=== PATIENT | male | born 1955 | race Hispanic/Latino ===

== ENCOUNTER 2021-09-24 20:30 | Observation (INO) | payer MEDICARE, OTHER ==
[~2021-09-24] VITALS: Ht 165.1 cm; Wt 67.6 kg
[2021-09-24] MEDS ORDERED: KETOROLAC TROMETHAMINE 30 MG/ML VIAL IV STA (20:39)
[2021-09-24 20:54] LABS: BASOPHILS % 0.6 % (0.0-1.0); EOSINOPHILS # (AUTO) 0.3 (0.0-0.4); EOSINOPHILS % 4.7 % (0.0-6.0); HEMATOCRIT 35.3 % (38.2-49.6); HEMOGLOBIN 11.6 g/dL (14.0-18.0); LYMPHOCYTES # (AUTO) 1.5 (1.0-3.2); LYMPHOCYTES % 27.5 % (18.0-39.1); MEAN CORPUSCULAR HEMOGLOBIN 29.8 pg (28-32); MEAN CORPUSCULAR HGB CONC 32.9 g/dL (31-35); MEAN CORPUSCULAR VOLUME 90.7 fL (81-99); MONOCYTES # (AUTO) 0.6 (0.2-0.8); MONOCYTES % 10.9 % (4.4-11.3); NEUTROPHILS % 55.9 % (38.7-80.0); PLATELET COUNT 186 x10e3/uL (140-360); RED BLOOD COUNT 3.89 x10e6/uL (4.3-5.7); RED CELL DISTRIBUTION WIDTH 12.9 % (11.7-14.4)
[2021-09-24 21:18] LABS: ALBUMIN 4.2 g/dL (3.5-5.0); ALBUMIN/GLOBULIN RATIO 1.3 (0.8-2.0); ANION GAP 20.5 mmol/L (8-16); CALCIUM 9.2 mg/dL (8.4-10.2); CREATININE, SERUM 0.79 mg/dL (0.72-1.25); POTASSIUM 3.5 mmol/L (3.5-5.1)
[2021-09-24 21:24] LABS: CREATINE KINASE MB 2.3 ng/mL (0-5.0)
[2021-09-24] MEDS ORDERED: SODIUM CHLORIDE 0.9% 50ML 50 ML ONE (21:38)
[2021-09-24] MEDS ORDERED: IOPAMIDOL 370 MG/ML 200 ML INFUS..BTL INJ ONE (21:39)
[2021-09-24] MEDS ORDERED: ONDANSETRON HCL INJ 2MG/ML 2ML 2 MG/ML VIAL IV PRN (22:15)
[2021-09-24] MEDS ORDERED: Morphine 2mg Syringe 2 MG/ML SYR IV PRN (22:15)
[2021-09-25 01:35] LABS: CREATINE KINASE MB 1.8 ng/mL (0-5.0)
[2021-09-25 06:05] LABS: CREATINE KINASE MB 1.6 ng/mL (0-5.0)
[2021-09-25 06:22] LABS: CHOLESTEROL 318 MD/DL (0-199); HDL CHOLESTEROL 29 MG/DL (40-60); TRIGLYCERIDES 1321 MG/DL (0-149)
[2021-09-25] MEDS ORDERED: ASPIRIN 81 MG ENTERIC COATED PO SCH (09:00)
[2021-09-25] MEDS ORDERED: POTASSIUM CHLORIDE 20 MEQ TAB CR PO STA (10:42)
[2021-09-25] MEDS ORDERED: FENOFIBRATE 145 MG TAB PO ONE (10:45)
[2021-09-25] MEDS ORDERED: BISACODYL 10 MG SUPP PR ONE (10:45)
[2021-09-25] MEDS ORDERED: DOCUSATE SODIUM LIQD 100 MG/10 ML UDC NG SCH (10:45)
[2021-09-25] MEDS ORDERED: POLYETHYLENE GLYCOL 3350 17 GM PACK PO ONE (10:45)
[2021-09-25] MEDS ORDERED: FENOFIBRATE145 MG PO (11:04)
[2021-09-25] MEDS ORDERED: ASPIRIN EC81 MG PO (11:04)
[2021-09-25] MEDS ORDERED: COLACE100 MG/10 NG (11:04)
[2021-09-25 11:30] LABS: CREATINE KINASE MB 1.3 ng/mL (0-5.0)
[2021-09-25] MEDS ORDERED: DOCUSATE SODIUM 100 MG CAP PO SCH (11:30)
[2021-09-25 14:48] VITALS: BP 136/65
[2021-09-26] MEDS ORDERED: FENOFIBRATE 145 MG TAB PO SCH (09:00)
== END 2021-09-25 14:51 | disposition home or self-care (01) ==
LOC: ER 20:35 → ERHOLD 22:08
PROVIDERS: ADMIT Internal Medicine; ATTEND Internal Medicine
DX: R07.9 Chest pain, unspecified (principal); R06.00 Dyspnea, unspecified; R11.0 Nausea; E78.1 Pure hyperglyceridemia; E78.5 Hyperlipidemia, unspecified; Z91.14 Patient's other noncompliance with medication regimen; Z85.46 Personal history of malignant neoplasm of prostate; E87.6 Hypokalemia; R73.9 Hyperglycemia, unspecified; I45.10 Unspecified right bundle-branch block; Z20.822 Contact with and (suspected) exposure to COVID-19
CPT/HCPCS: 36415; 71045; 71260; 80053; 80061; 82550 ×2; 82553 ×2; 84484 ×2; 85025; 85379; 93005 ×2; 93306; 94799; 99284; G0378 ×2; J1885; Q9967; U0002

== ENCOUNTER 2022-03-30 20:19 | Emergency (ER) | payer MEDICARE ==
[~2022-03-30] VITALS: Ht 165.1 cm; Wt 67.6 kg
[~2022-03-30 20:19] MED LIST: ASPIRIN EC81 MG PO; COLACE100 MG/10 NG; FENOFIBRATE145 MG PO
[2022-03-30] MEDS ORDERED: ACETAMINOPHEN 325 MG TAB PO STA (20:55)
[2022-03-30] MEDS ORDERED: ACETAMINOPHEN 1000 MG/100 ML 100 ML IV ONE (21:10)
[2022-03-30 21:19] LABS: BASOPHILS % 0.2 % (0.0-1.0); EOSINOPHILS # (AUTO) 0.1 (0.0-0.4); EOSINOPHILS % 0.7 % (0.0-6.0); HEMATOCRIT 27.9 % (38.2-49.6); HEMOGLOBIN 8.7 g/dL (14.0-18.0); LYMPHOCYTES # (AUTO) 1.1 (1.0-3.2); LYMPHOCYTES % 8.7 % (18.0-39.1); MEAN CORPUSCULAR HEMOGLOBIN 27.2 pg (28-32); MEAN CORPUSCULAR HGB CONC 31.2 g/dL (31-35); MEAN CORPUSCULAR VOLUME 87.2 fL (81-99); MONOCYTES # (AUTO) 1.1 (0.2-0.8); MONOCYTES % 8.5 % (4.4-11.3); NEUTROPHILS # (AUTO) 10.3 (2.1-6.9); NEUTROPHILS % 81.3 % (38.7-80.0); PLATELET COUNT 360 x10e3/uL (140-360); RED CELL DISTRIBUTION WIDTH 15.9 % (11.7-14.4)
[2022-03-30 21:34] LABS: ALBUMIN 2.6 g/dL (3.5-5.0); ALBUMIN/GLOBULIN RATIO 0.5 (0.8-2.0); ALKALINE PHOSPHATASE 151 IU/L (40-150); ANION GAP 19.7 mmol/L (8-16); BLOOD UREA NITROGEN 10 mg/dL (7-26); BUN/CREATININE RATIO 10 (6-25); CALCIUM 9.2 mg/dL (8.4-10.2); CARBON DIOXIDE 22 mmol/L (22-29); CHLORIDE 100 mmol/L (98-107); CREATININE, SERUM 1.01 mg/dL (0.72-1.25); GLUCOSE 297 mg/dL (74-118); SODIUM 136 mmol/L (136-145)
[2022-03-30 21:36] LABS: ALANINE AMINOTRANSFERASE < 6 IU/L (0-55); POTASSIUM 5.7 mmol/L (3.5-5.1)
[2022-03-30 21:42] LABS: CREATINE KINASE MB 0.8 ng/mL (0-5.0)
[2022-03-30] MEDS ORDERED: Morphine 4mg Syringe 4 MG/ML INJ IV STA (23:16)
[2022-03-30] MEDS ORDERED: ONDANSETRON HCL INJ 2MG/ML 2ML 2 MG/ML VIAL IV STA (23:16)
[2022-03-30] MEDS ORDERED: Morphine 4mg Syringe 4 MG/ML INJ ONE (23:30)
[2022-03-30] MEDS ORDERED: ONDANSETRON HCL INJ 2MG/ML 2ML 2 MG/ML VIAL ONE (23:30)
[2022-03-30] MEDS ORDERED: DEXTROSE 50% SYRINGE 50 ML IV STA (23:51)
[2022-03-30] MEDS ORDERED: INSULIN REGULAR, HUMAN 100 UNIT/1 ML IV STA (23:51)
[2022-03-30] MEDS ORDERED: ALBUTEROL SULF 0.083% NEB SOLN 3 ML NEB NEB STA (23:51)
[2022-03-31] MEDS ORDERED: FUROSEMIDE INJ 10 MG/ML 4 ML VIAL IV ONE
[2022-03-31 00:04] LABS: CLARITY,URINE SL CLOUDY (CLEAR); COLOR,URINE YELLOW (YELLOW); KETONES,URINE TRACE (NEGATIVE); LEUKOCYTE ESTERASE ,URINE NEGATIVE (NEGATIVE); NITRITE,URINE NEGATIVE (NEGATIVE); PROTEIN,URINE DIPSTICK NEGATIVE (NEGATIVE); URINE UROBILINOGEN 0.2 mg/dL (0.2 - 1)
[2022-03-31] MEDS ORDERED: SODIUM CHLORIDE 0.9% 1000ML 1,000 ML IV STA (00:08)
[2022-03-31 00:10] LABS: BACTERIA,URINE MANY /HPF; EPITHELIAL CELLS,URINE RARE /LPF
[2022-03-31] MEDS ORDERED: ALBUTEROL SULF 0.083% NEB SOLN 3 ML NEB ONE (00:32)
[2022-03-31] MEDS ORDERED: SODIUM CHLORIDE 0.9% 1000ML 1,000 ML ONE (00:43)
[2022-03-31] MEDS ORDERED: FUROSEMIDE INJ 10 MG/ML 4 ML VIAL ONE (00:43)
[2022-03-31] MEDS ORDERED: DEXTROSE 50% SYRINGE 50 ML IV ONE (00:43)
[2022-03-31] MEDS ORDERED: INSULIN REGULAR, HUMAN 100 UNIT/1 ML ONE (00:44)
[2022-03-31 02:47] LABS: ALBUMIN 2.1 g/dL (3.5-5.0); ANION GAP 14.7 mmol/L (8-16); BLOOD UREA NITROGEN 10 mg/dL (7-26); BUN/CREATININE RATIO 12 (6-25); CALCIUM 7.8 mg/dL (8.4-10.2); CARBON DIOXIDE 23 mmol/L (22-29); CHLORIDE 106 mmol/L (98-107); CREATININE, SERUM 0.86 mg/dL (0.72-1.25); GLUCOSE 131 mg/dL (74-118); POTASSIUM 3.7 mmol/L (3.5-5.1); SODIUM 140 mmol/L (136-145)
[2022-03-31 02:48] LABS: ALANINE AMINOTRANSFERASE < 6 IU/L (0-55); ALBUMIN/GLOBULIN RATIO 0.5 (0.8-2.0); ALKALINE PHOSPHATASE 116 IU/L (40-150)
[2022-03-31] MEDS ORDERED: CIPRO500 MG PO (03:53)
[2022-03-31 04:48] VITALS: BP 134/58
== END 2022-03-31 04:15 | disposition home or self-care (01) ==
LOC: ER 20:57
DX: A41.9 Sepsis, unspecified organism (principal); N39.0 Urinary tract infection, site not specified; Z46.6 Encounter for fitting and adjustment of urinary device; E87.5 Hyperkalemia; E11.9 Type 2 diabetes mellitus without complications; Z85.46 Personal history of malignant neoplasm of prostate; Z20.822 Contact with and (suspected) exposure to COVID-19; Z79.82 Long term (current) use of aspirin; Z79.899 Other long term (current) drug therapy
CPT/HCPCS: 36415; 51700; 71045; 80053; 81001; 82550; 82553; 83605; 83690; 84484; 85025; 87040; 87086; 87186; 93005; 94640; 94799; 99284; J0131; J1817; J1940; J2270; J2405; J2543; J7030; J7799; U0002